=== PATIENT | female | born 1995 | race Hispanic/Latino ===

== ENCOUNTER 2022-06-08 15:01 | Emergency (ER) | payer OTHER ==
[~2022-06-08] VITALS: Ht 165.1 cm; Wt 68.0 kg
[2022-06-08 15:06] VITALS: BP 126/80
[2022-06-08] MEDS ORDERED: FAMOTIDINE 20MG VIAL IV ONE (15:30)
[2022-06-08] MEDS ORDERED: 0.9%NACL 1000ML 1,000 ML IV ONE (15:30)
[2022-06-08] MEDS ORDERED: ONDANSETRON 4MG INJ IVP ONE (15:30)
[2022-06-08] MEDS ORDERED: DICYCLOMINE HCL 20 MG TAB PO SCH (15:30)
[2022-06-08 15:41] LABS: HCG,QUALITATIVE URINE NEGATIVE (NEGATIVE)
[2022-06-08 15:43] LABS: BASOPHILS % (AUTO) 0.1 % (0.0-5.0); EOSINOPHILS % (AUTO) 0.1 % (0.0-8.0); HEMATOCRIT 43.1 % (36-48); LYMPHOCYTES % (AUTO) 22.4 % (21.0-51.0); MEAN CORPUSCULAR HEMOGLOBIN 30.9 pg (27.0-33.0); MEAN CORPUSCULAR HGB CONC 33.9 g/dL (32.0-36.0); MEAN CORPUSCULAR VOLUME 91.3 fL (79-99); NEUTROPHILS % (AUTO) 73.3 % (40.0-77.0); PLATELET COUNT (AUTO) 198 K/uL (130-400); RED BLOOD CELL COUNT(AUTO) 4.72 MIL/uL (4.00-5.50); RED CELL DISTRIBUTION WIDTH 12.4 % (11.0-15.5); WHITE BLOOD COUNT (AUTO) 6.8 K/uL (4.8-10.8)
[2022-06-08 15:49] LABS: APPEARANCE,URINE CLEAR (CLEAR); BILIRUBIN,URINE NEGATIVE (NEGATIVE); COLOR,URINE LIGHT-YELLOW (YELLOW); GLUCOSE, URINE (UA) NEGATIVE (NEGATIVE); KETONES,URINE NEGATIVE (NEGATIVE); LEUKOCYTE ESTERASE ,URINE NEGATIVE Leu/uL (NEGATIVE); NITRATE,URINE NEGATIVE (NEGATIVE); OCCULT BLOOD,URINE NEGATIVE (NEGATIVE); PROTEIN,URINE 20 mg/dL (NEGATIVE); UROBILINOGEN,URINE 0.2 mg/dL (0.2-1.0)
[2022-06-08 15:52] LABS: CREATININE 0.7 mg/dL (0.5-1.5); POTASSIUM 3.7 mmol/L (3.5-5.1)
[2022-06-08 15:56] LABS: BACTERIA,URINE FEW /HPF (None Seen); MUCUS,URINE RARE LPF (None Seen); OTHER CASTS, URINE 1 /LPF (None Seen); SQUAMOUS EPITHELIAL CELL,UR MANY /HPF (0-2)
[2022-06-08 15:57] LABS: ALBUMIN 4.5 g/dL (3.5-5.0); TOTAL PROTEIN, SERUM 9.1 g/dL (6.0-8.3)
[2022-06-08 16:28] LABS: AMPHET/METH SCREEN,URINE NEGATIVE (NEGATIVE); BARBITURATE SCREEN, URINE NEGATIVE (NEGATIVE); BENZODIAZEPINES SCREEN,URINE NEGATIVE (NEGATIVE); CANNABINOID SCREEN,URINE POSITIVE (NEGATIVE); COCAINE SCREEN,URINE NEGATIVE (NEGATIVE); OPIATE SCREEN,URINE NEGATIVE (NEGATIVE); PHENCYCLIDINE SCREEN,URINE NEGATIVE (NEGATIVE)
[2022-06-08] MEDS ORDERED: HALOPERIDOL INJ 5 MG/ML VIAL IV SCH (17:00)
[2022-06-08] MEDS ORDERED: ONDA4TAB10 PO (17:36)
== END 2022-06-08 17:42 | disposition home or self-care (01) ==
LOC: EDH 15:01
DX: R11.2 Nausea with vomiting, unspecified (principal); F12.90 Cannabis use, unspecified, uncomplicated
CPT/HCPCS: 99284; 96374; 96375; 80053; 80305; 83690; 85025; 81025; 36415; 81001; J3490; J7030; J1630; J2405

== ENCOUNTER 2022-11-19 09:54 | Emergency (ER) | payer OTHER ==
[~2022-11-19] VITALS: Ht 165.1 cm; Wt 72.6 kg
[~2022-11-19 09:54] MED LIST: ONDA4TAB10 PO
[2022-11-19 11:22] VITALS: BP 123/81
== END 2022-11-19 11:49 | disposition home or self-care (01) ==
LOC: EDH 09:54
DX: U07.1 COVID-19 (principal)
CPT/HCPCS: 99283; 87635; 87880; 87804 ×2; C9803

== ENCOUNTER 2022-12-07 08:49 | Emergency (ER) | payer OTHER ==
[~2022-12-07] VITALS: Ht 165.1 cm; Wt 72.6 kg
[2022-12-07 09:14] VITALS: BP 130/78
[2022-12-07] MEDS ORDERED: IBUP-2077 PO (09:20)
[2022-12-07] MEDS ORDERED: METH-811 PO (09:20)
[2022-12-07] MEDS ORDERED: LIDOP TP (09:20)
== END 2022-12-07 09:37 | disposition home or self-care (01) ==
LOC: EDH 08:49
DX: S46.812A Strain of other muscles, fascia and tendons at shoulder and upper arm level, left arm, initial encounter (principal); S29.011A Strain of muscle and tendon of front wall of thorax, initial encounter; M25.512 Pain in left shoulder; M25.531 Pain in right wrist; V89.2XXA Person injured in unspecified motor-vehicle accident, traffic, initial encounter; Y93.I9 Activity, other involving external motion; Y92.488 Other paved roadways as the place of occurrence of the external cause; Y99.8 Other external cause status

== ENCOUNTER 2025-07-24 11:24 | Emergency (ER) | payer MEDICAID ==
[~2025-07-24] VITALS: Ht 167.6 cm; Wt 72.6 kg
[~2025-07-24 11:24] MED LIST changes: +IBUP-2077 PO; +LIDOP TP; +METH-811 PO; +ONDA-243 PO; -ONDA4TAB10 PO
--- NOTE | 2025-07-24 11:26 | ERN ---
ED Note History of Present Illness Stated Complaint: MULTIPLE COMPLAINTS Chief Complaint: Multiple Complaints Time Seen by MD: 11:25 Time Seen by Midlevel: 11:34 Dictation: Ms. Yuniel Pardo a 29-year-old female with no reported chronic health issues who presented to the emergency department this morning for evaluation for possible dehydration. She reports fatigue, general weakness, chills, frequent BMs, abdominal cramping, nausea and emesis x1 with onset last night. She states that she was tired yesterday and ate very little. She states she feels like she might be dehydrated. She denies fever, shortness of breath, cough, chest pain, palpitations, edema, hematemesis, constipation, melena, hematochezia, dysuria, headache, dizziness, or focal weakness/paresthesia Allergies: Coded Allergies: No Known Allergies (Unverified Allergy, Unknown, 06/08/22) Home Meds Active Scripts Ondansetron (Ondansetron Odt) 4 Mg Tab.rapdis, 4 MG PO Q6HPRN PRN for nausea, #15 TAB 0 Refills Prov:MAGGI DAVIS [facility] 07/24/25 Nitrofurantoin Macrocrystal (Nitrofurantoin) 100 Mg Capsule, 1 CAP PO BID for 7 Days, #14 CAP 0 Refills Prov:MAGGI DAVIS [facility] 07/24/25 Lidocaine (Lidoderm Patch 5%) 1 Patch Patch, 1 PATCH TP DAILY PRN for PAIN LEVEL 6 TO 10 for 7 Days, #7 ADH.PATCH Prov:SALAZAR RILEY MD 12/07/22 Methocarbamol (Methocarbamol) 500 Mg Tablet, 500 MG PO Q6HPRN PRN for PAIN LEVEL 6 TO 10 for 7 Days, #30 TAB Prov:SALAZAR RILEY MD 12/07/22 Ibuprofen (Ibuprofen 800 mg Tab) 800 Mg Tab, 800 MG PO Q6H PRN for PAIN for 7 Days, #30 TAB Prov:SALAZAR RILEY MD 12/07/22 Ondansetron (Ondansetron Odt) 4 Mg Tab.rapdis, 4 MG PO TID, #10 TAB Prov:APOLLO ZAYAS [facility] 06/08/22 Past Medical History Past Medical History: No Pertinent History Surgical History: None PSYCH History: no pertinent psych hx Social History: Negative, Lives with family, Other RN Note Reviewed/Agreed w/PFSH: Yes Review of System Dictation REVIEW OF SYSTEMS: CONSTITUTIONAL: Patient denies fevers,sweats or weight changes. Reports fatigue, general weakness, and chills EYES: Patient denies any visual symptoms. EARS, NOSE, AND THROAT: No difficulties with hearing. No symptoms of rhinitis or sore throat. CARDIOVASCULAR: Patient denies chest pains, palpitations, orthopnea and paroxysmal nocturnal dyspnea. RESPIRATORY: No dyspnea on exertion, no wheezing or cough. GI: No constipation, hematemesis, hematochezia or melena. Reports abdominal cramping, diarrhea, nausea, and emesis x1. : No urinary hesitancy or dribbling. No nocturia or urinary frequency. No abnormal urethral discharge. MUSCULOSKELETAL: No myalgias or arthralgias. NEUROLOGIC: No chronic headaches, no seizures. Patient denies numbness, tingling or weakness. PSYCHIATRIC: Patient denies problems with mood disturbance. No problems with anxiety. ENDOCRINE: No excessive urination or excessive thirst. DERMATOLOGIC: Patient denies any rashes or skin changes. Initial Vital Sign VS Vital Signs Date Time Temp Pulse Resp B/P (MAP) Pulse Ox O2 Delivery O2 Flow Rate FiO2 07/24/25 11:26 97.7 122 16 116/81 99 Room Air 0 07/24/25 13:28 21 Physical Exam Dictation Vital signs: Reviewed. Afebrile Constitutional: No acute distress. Non-toxic appearing. Pleasant Head/Face: Normocephalic, atraumatic. Eyes: Periorbital areas with no swelling, redness, or edema. Lids and lashes are normal. Conjunctival injection is absent. Sclera anicteric. Pupils equal, round, reactive to light. ENT: Pinnas intact and no signs of trauma or erythema. Ear canals clear and no discharge. TMs no erythema. No nasal discharge or bleeding noted. Oropharynx with no exudate, redness, swelling, masses, exudates, or evidence of obstruction. Uvula midline. Mucous membranes dry. Neck: Trachea midline, no masses palpated, and no cervical lymphadenopathy. No swelling. Supple, full range of motion. Chest/Axilla: No tenderness, no crepitus, no paradoxical movement, no retract ions. Cardiovascular: Regular rate, regular rhythm, no murmur, no gallops. Symmetric pulses. No peripheral edema. Tachycardic; heart rate 130. Normotensive; 116/81 Respiratory: Respirations even and unlabored. Lung sounds clear; no wheezes, rales or rhonchi. Room air SpO2 99% Gastrointestinal: Inspection is normal. No distention is appreciated. Bowel sounds are normal. No mass or organomegaly . Slight tenderness lower quadrants. No rebound. No rigidity. No voluntary or involuntary guarding. No Donald's sign. : negative CVA tenderness bilaterally Neurological: Normal speech, gross motor function intact, gross sensory functi on intact. No focal weakness/Paresthesia. Musculoskeletal/Extremities: All extremities have full range of motion, no pain or tenderness on palpation. Symmetric pulses. Integumentary: Intact. Skin is normal color, warm and dry. Cap refill less than 3 seconds. Results (Laboratory/Radiology) Laboratory/Radiology Labs Reviewed?: Yes ED Course ED Course Patient arrived to ED with tachycardia and dry mucous membranes; signs of dehydration. Laboratory findings as noted below. There is mild leukocytosis with neutrophil predominance (81.4%), and relative lymphopenia (11.1%). Pattern common for acute stress, vomiting, dehydration, and early infectious gastroenteritis. There was no electrolyte derangement and excellent renal function. U hCG negative. UA positive for leukocyte esterase and protein. U rine culture is pending. She received doses Zofran, Macrobid and NS 1500 mL IV as bolus. She had improved after IV fluids and antiemetics with resolution of tachycardia no further emesis. Patient discharged to home in stable condition with prescriptions for Macrobid and Zofran. Return precautions reviewed; patient verbalizes understanding. Medical Decision Making MDM MDM: Differential diagnosis: Acute viral gastroenteritis, dehydration, electrolyte derangement, early with hyperemesis, UTI Rationale: Tests considered and ordered secondary to shared decision making include: Previous outside records reviewed: Old ER visits. Risk of complication and/or morbidity or mortality of patient management: None Medications-Per medication reconciliation Need for hospitalization: Patient does not meet criteria for hospitalization. Need for emergency major/minor surgery: No There are no social concerns with this patient. Prescription drug management: Zofran, Macrobid Prescriptions will include symptomatic care Patient's prior external medical records from other ER visits were reviewed by me as indicated. Prior testing and results from previous visits were reviewed. Prior tests were taken into account with medical decision making and resource utilization, independent historian/historians were used to obtain complete medical history. I independently interpreted the test that were performed, results were reviewed by me and considered findings on radiology if ordered. Medical management and examination interpretation discussions were had by me with other qualified healthcare professionals as indicated for the patient's care. DX & DISP Disposition: Discharge Departure Impression: Primary Impression: Acute gastroenteritis Additional Impressions: Dehydration, tachycardia resolved with IV fluids, UTI (urinary tract infection) Condition: Stable Scripts Ondansetron (Ondansetron Odt) 4 Mg Tab.rapdis 4 MG PO Q6HPRN PRN for nausea, #15 TAB 0 Refills Prov: MAGGI DAVIS [facility] 07/24/25 Nitrofurantoin Macrocrystal (Nitrofurantoin) 100 Mg Capsule 1 CAP PO BID for 7 Days, #14 CAP 0 Refills Prov: MAGGI DAVIS [facility] 07/24/25 Additional Instructions: You received 1.5 L of IV fluids and your heart rate normalized. You were treated with Zofran for nausea. Your urine testing showed evidence of urinary tract infection. Your test was negative. And your electrolytes and kidney function were normal. He will continue Macrobid twice daily for the next seven days; complete the entire course even if you are feeling better. Take Zofran ODT every 6-8 hours as needed for nausea. You may also take Tylenol or ibuprofen for discomfort or fever. Drink plenty of fluids (water, electrolyte solutions). Take small, frequent sips. Advanced diet as tolerated. Start with bland foods such as toast, crackers, rice, or bananas. Avoid greasy, spicy or heavy foods for the next 24-48 hours. Avoid alcohol until fully recovered. Rest today. Resume normal activities as tolerated once your symptoms improve. Mild fatigue or decreased appetite may persist for a day or two. Urinary symptoms should improve within 24-48 hours of antibiotics. Return to the emergency department immediately if you have: Persistent/worsening vomiting, inability to keep fluids down, worsening abdominal pain, fever greater than 101, new flank or back pain, dizziness/fainting/rapid heart rate, or worsening urinary symptoms despite antibiotics. Follow up with your primary care provider in 2-3 days. You are being discharged because the symptoms improved with treatment. You are stable for outpatient care at this time. Referrals: NONE (PCP) Time of Disposition: 15:10 ATTESTATION BY PHYSICIAN I PERFORMED THE SUBSTANTIVE PORTION OF THE VISIT. I HAVE REVIEWED AND PERSONALLY MADE AND APPROVED THE MANAGEMENT PLAN THAT IS DOCUMENTED IN THE NOTE BY MYSELF FOR THE A PP. MAGGI DAVIS Jul 24, 2025 11:26 MERVAT LOZA MD Jul 28, 2025 07:42
[2025-07-24 11:44] LABS: IMMATURE GRANULOCYTE ABSOLUTE 0.03 K/uL (0-1); NUCLEATED RED BLOOD CELLS 0.0 % (0.0-0.19); PLATELET COUNT (AUTO) 256 K/uL (130-400); RED BLOOD CELL COUNT(AUTO) 5.19 MIL/uL (4.00-5.50); RED CELL DISTRIBUTION WIDTH 12.4 % (11.0-15.5); WHITE BLOOD COUNT (AUTO) 11.5 K/uL (4.8-10.8)
[2025-07-24 11:51] LABS: CREATININE 0.6 mg/dL (0.5-1.0); GLOMERULAR FILTR. RATE CALC 126.0 mL/min (>90); GLUCOSE,RANDOM 88.0 mg/dL (70-105); SODIUM SERUM 138.0 mmol/L (136-145); UREA NITROGEN, BLOOD 10.0 mg/dL (7-18)
[2025-07-24] MEDS: 0.9%NACL 1000ML 1,000 ML IV ONE (12:23)
[2025-07-24 12:35] LABS: APPEARANCE,URINE CLEAR (CLEAR); GLUCOSE, URINE (UA) NEGATIVE (NEGATIVE); LEUKOCYTE ESTERASE ,URINE 25 Leu/uL (NEGATIVE); NITRATE,URINE NEGATIVE (NEGATIVE); OCCULT BLOOD,URINE NEGATIVE (NEGATIVE)
[2025-07-24 12:36] LABS: HCG,QUALITATIVE URINE NEGATIVE (NEGATIVE)
[2025-07-24 12:37] LABS: ADD UA MICROSCOPIC YES
[2025-07-24 12:41] LABS: SQUAMOUS EPITHELIAL CELL,UR FEW /HPF (0-2)
[2025-07-24 12:53] LABS: SARS-CoV-2, RNA, NAAT NEGATIVE SARS CoV-2 (NEGATIVE)
[2025-07-24 12:57] LABS: INFLUENZA TYPE A Negative For Type A (NEGATIVE); INFLUENZA TYPE B Negative For Type B (NEGATIVE)
[2025-07-24] MEDS: 0.9% NACL 500ML IV.SOLN 500 ML IV ONE (13:54)
[2025-07-24 15:02] VITALS: BP 106/78; PULSE 78; RESP 18; TEMP 98.6; O2SAT 98
[2025-07-24] MEDS ORDERED: NITR100C PO (15:08)
[2025-07-24] MEDS ORDERED: ONDA-243 PO (15:08)
[2025-07-24] MEDS ORDERED: NITROFURANTOIN MONOHYD/M-CRYST 100 MG CAPSULE PO SCH (15:30)
[2025-07-24] MEDS ORDERED: NITROFURANTOIN MONOHYD/M-CRYST 100 MG CAPSULE PO ONE (15:30)
== END 2025-07-24 15:37 | disposition home or self-care (01) ==
LOC: EDH 11:24
DX: K52.9 Noninfective gastroenteritis and colitis, unspecified (principal); E86.0 Dehydration; N39.0 Urinary tract infection, site not specified; R00.0 Tachycardia, unspecified; Z20.822 Contact with and (suspected) exposure to COVID-19; Z87.440 Personal history of urinary (tract) infections
CPT/HCPCS: 99283; 96374; 96361; 87635; 80048; 85025; 87804 ×2; 81001; 81025; 36415; J7040; J7030; J2405